=== PATIENT | male | born 1995 | race Hispanic/Latino ===

== ENCOUNTER 2017-02-07 19:06 | Emergency (ER) | payer SELFPAY ==
--- NOTE | 2017-02-07 19:42 | RAD ---
LUMBAR SPINE THREE VIEWS: History: 21-year-old male with low back pain which began last night. FINDINGS: Disc spaces are adequately preserved. No fracture or dislocation or malalignment. No focal bone lesi on. IMPRESSION: Unremarkable lumbar spine. POS: [facility]
[2017-02-07] MEDS ORDERED: Ketorolac Tromethamine 30 MG/ML VIAL ONE ×3 (19:56→20:03)
== END 2017-02-07 20:15 | disposition home or self-care (01) ==
LOC: ERS 19:06
DX: S33.5XXA Sprain of ligaments of lumbar spine, initial encounter (principal); X50.9XXA Other and unspecified overexertion or strenuous movements or postures, initial encounter; Y92.69 Other specified industrial and construction area as the place of occurrence of the external cause
CPT/HCPCS: 72100; 96372; J1885